=== PATIENT | female | born 1945 | race Caucasian/White ===

== ENCOUNTER 2017-05-06 22:06 | Emergency (ER) | payer MEDICARE, OTHER ==
[~2017-05-06] VITALS: Ht 157.5 cm; Wt 68.0 kg
[2017-05-06 22:06] VITALS: BP 150/91
[~2017-05-06 22:06] MED LIST: CARV12.52 PO; FERR-58 PO; HYDR-4076 PO; HYDR500C PO; IBRU140C PO; LISI-603 PO; TRAM50TA2 PO
== END 2017-05-06 23:02 | disposition home or self-care (01) ==
LOC: ER 22:20
DX: G89.29 Other chronic pain (principal); M79.1 Myalgia; Z85.72 Personal history of non-Hodgkin lymphomas; Z85.850 Personal history of malignant neoplasm of thyroid; I10 Essential (primary) hypertension
CPT/HCPCS: 99281; A4606; Z7502; Z7610